=== PATIENT | female | born 1970 | race Caucasian/White ===

== ENCOUNTER → 2019-10-22 | Outpatient (CLI) | payer OTHER ==
[~2019-10-22] VITALS: Ht 175.3 cm; Wt 86.2 kg
[~2019-10-22] MED LIST: KEPPRA XR750 MG PO; ORTHO TRI-CYCL1 EACH PO; PRILOSEC OTC20 MG PO
[2019-10-22 08:24] VITALS: BP 132/82
[2019-10-22 09:05] LABS: ABSOLUTE NEUTROPHILS 9.5 thou/uL (1.4-8.2); BASOPHILS 0.4 % (0.0-2.0); EOSINOPHILS 1.7 % (0.0-3.0); HEMATOCRIT 35.9 % (37.0-47.0); HEMOGLOBIN 11.6 gm/dL (12.0-15.0); LYMPHOCYTES 16.1 % (24.0-44.0); MCH 29.2 pg (26.0-34.0); MCHC 32.3 g/dL (28.0-37.0); MCV 90.4 fL (80.0-100.0); MONOCYTES 4.1 % (1.0-8.0); PLATELET COUNT 283 thou/uL (150-400); POLYS 77.7 % (36.0-66.0); RBC 3.96 mil/uL (4.20-5.00); RDW 13.5 % (10.5-14.5); WBC 12.3 thou/uL (4.0-11.0)
[2019-10-22 09:12] LABS: CALCIUM 9.6 mg/dL (8.5-10.1); POTASSIUM 4.1 mmol/L (3.5-5.1)
--- NOTE | 2019-10-22 09:56 | EKG ---
[address] [address] ELECTROCARDIOGRAM REPORT Name: MADISYN QUEZADA Room #: TERRY Olea#: [id number] Admission: 10/22/19 Attend Phys: Channing Flores Discharge: Date of : 70 Report #: [id number] THIS REPORT FOR: //name// [facility] Test Date: 2019-10-22 Test Time: 08:44:41 Pat Name: MADISYN QUEZADA Department: Room: Gender: F Financial Investment Adviser: Santosh POMPA : 1970 Requested By: Channing Flores Order Number: [id number] MD: Ricky Muñoz Measurements Intervals Gallant Rate: 74 P: 63 AL: 136 QRS: 73 QRSD: 75 T: 67 QT: 394 QTc: 438 Interpretive Statements Sinus rhythm Normal tracing No previous ECG available for comparison Electronically Signed On 10-22-2019 9:56:15 [employer] SUPERVIS[employer] by Ricky Muñoz [email or web address] <ELECTRONICALLY SIGNED> By: Ricky Muñoz MD, [facility] 10/22/19 0956 [id number] Ricky Muñoz MD, FACC /EPI
--- NOTE | 2019-10-22 12:00 | NUR ---
PT AMBULATED STEADILY TO RESTROOM. GROIN REMAINTS CDI.
--- NOTE | 2019-10-27 14:27 | CATHLAB ---
[facility] [address] [place] [address] INVASIVE PROCEDURE REPORT Name: MADISYN QUEZADA Room #: REG MANNIE Olea#: [id number] Admission: 10/22/19 Attend Phys: Channing Vasquez Discharge: Date of : 70 Report #: [id number] THIS REPORT FOR: //name// APPROVED REPORT Study performed: 10/22/2019 09:40:56 Patient Details Patient Status: Out-Patient Room #: The patient is a 49 year-old female Event Personnel Channing Flores Headline Writer, Marlene English RN RN, Adeline Hoyt RN RN, Ros Cid RTShannan Levi, Oscar Carpenter Monitor Procedures Performed Left Heart Cath w/or w/o Coronaries [id number] [facility], supervision of conscious sedation Indication Positive stress test, Chest pain Procedure Narrative The Right Groin^ was infiltrated with 1% Lidocaine subcutaneous anesthesia. A PINNACLE 4FR Sheath #[id number] sheath was inserted into the RFA^. Coronary angiography was performed using coronary diagnostic catheters. The right coronary system was accessed and visualized with a JR4 catheter. The left coronary system was accessed and visualized with a JL4 catheter. The left ventricle was accessed and visualized with a PIGTAIL catheter. Left ventricular/Aortic Valve gradient assessed via catheter pullback. Hemostasis was obtained with manual pressure following sheath removal without any complications. The patient tolerated the procedure well and there were no complications associated with the procedure. There was no hematoma. Intraoperative Conscious Sedation Sedation start time: 10.09 Case end Time: 10.36 Versed 2 mg Fluoro Time: 2.58 minutes Dose: DAP 2301.00 cGycm2 320 mGy Contrast Type and Amount: Omnipaque 55 ml [facility] [address] [place] [address] INVASIVE PROCEDURE REPORT Name: MADISYN QUEZADA [id number]mission: 10/22/19 Attend Phys: Channing Vasquez Discharge: Date of : 70 Report #: [id number] Diagnostic Cath Left Main Laboratory was normal origin and caliber bifurcates into the descending left circumflex is free of high-grade disease LAD Moderate caliber type II vessel which courses in the anterior interventricular sulcus giving rise to septal and diagonal branches all of which are free of high-grade disease. The vessel then tapers to the apexes string-like vessel and terminates at the apex of the left ventricle. Diagonal 1 Small-caliber vessel without high-grade disease Diagonal 2 Smaller caliber vessel with a high-grade disease Circumflex Monitor large-caliber vessel which results in a marginal branch which has a terminal bifurcating portion. It is free of high-grade disease noted. OM1 Moderate caliber vessel stated above with terminal bifurcation. Disease Right Coronary Monitor large-caliber vessel normal origin courses in the AV groove to 2 marginal regular severe RV marginal branch were then continues posteriorly giving rise to posterior descending artery and posterior all branches with are free of high-grade disease although small in caliber R PDA Small-caliber vessel without significant high-grade lesions noted Left Ventriculography Left Ventriculography was not performed. Hemodynamics The aortic pressure is 143/88 mmHg with a mean of 101 mmHg. The left ventricular pressure is 159/1 mmHg with a mean of mmHg. The left ventricular end diastolic pressure is 19 mmHg. There was no gradient across the aortic valve upon pullback. Pullback from the left ventricle to the aorta revealed no gradient across the aortic valve. Conclusion 1. Normal coronary arteries 2. Abnormal he is at elevated liver ventricular end-diastolic pressures [facility] [address] [place] [address] INVASIVE PROCEDURE REPORT Name: [facility] Room #: REG Emmie#: [id number] Admission: 10/22/19 Attend Phys: Channing Vasquez Discharge: Date of : 70 Report #: [id number] Recommendations Medical Therapy <ELECTRONICALLY SIGNED> By: Channing Flores MD 10/27/19 1426 25 [id number] Channing Flores MD /INF
== END | disposition home or self-care (01) ==
LOC: CATH 07:57
PROVIDERS: Internal Medicine
DX: R07.9 Chest pain, unspecified (principal); R94.39 Abnormal result of other cardiovascular function study; I50.1 Left ventricular failure, unspecified; E78.5 Hyperlipidemia, unspecified; Z98.890 Other specified postprocedural states; Z79.899 Other long term (current) drug therapy